=== PATIENT | male | born 1980 | race African-American/Black ===

== ENCOUNTER 2017-04-12 18:51 | Emergency (ER) | payer SELFPAY ==
[~2017-04-12] VITALS: Ht 172.7 cm; Wt 72.6 kg
[2017-04-12] MEDS ORDERED: EPINEPHrine 1mg/1ml Amp ONE (18:55)
[2017-04-12] MEDS: Albuterol ud Inhalation HHN SCH ×3 (18:59→19:16)
[2017-04-12] MEDS: Ipratropium 0.02% Inh Soln 2.5ml UD HHN SCH ×3 (18:59→19:16)
[2017-04-12] MEDS ORDERED: DiphenhydrAMINE 50mg/ml Inj IVP ONE (19:00)
[2017-04-12] MEDS ORDERED: Solu-MEDROL 125mg Inj IVP ONE (19:00)
[2017-04-12] MEDS ORDERED: Famotidine 20 MG/ 2ML VIAL IVP ONE (19:00)
[2017-04-12] MEDS ORDERED: Terbutaline 1mg/ml Inj SUBQ ONE (19:00)
[2017-04-12 19:08] VITALS: BP 152/86
[2017-04-12 19:23] LABS: BASOPHILS % (AUTO) 2.4 % (0.0-2.0); EOSINOPHILS % (AUTO) 6.7 % (0.0-3.0); LYMPHOCYTES % (AUTO) 41.3 % (20.0-45.0); MEAN CORPUSCULAR HEMOGLOBIN 28.2 PG (27.0-31.0); MEAN CORPUSCULAR HGB CONC 33.5 G/DL (32.0-36.0); MEAN CORPUSCULAR VOLUME 84 FL (80-99); MEAN PLATELET VOLUME 7.9 FL (6.5-10.1); MONOCYTES % (AUTO) 10.4 % (1.0-10.0); NEUTROPHILS % (AUTO) 39.1 % (45.0-75.0); PLATELET COUNT 193 K/UL (150-450); RED BLOOD COUNT 4.77 M/UL (4.70-6.10); RED CELL DISTRIBUTION WIDTH 12.5 % (11.6-14.8); WHITE BLOOD COUNT 8.2 K/UL (4.8-10.8)
[2017-04-12 19:30] LABS: ALANINE AMINOTRANSFERASE 38 U/L (3-41); ALBUMIN/GLOBULIN RATIO 1.4 (1.0-2.7); ANION GAP 20 (5-15); ASPARTATE AMINO TRANSFERASE 63 U/L (5-40); CALCIUM 9.2 mg/dL (8.6-10.2); CARBON DIOXIDE 23 mEQ/L (20-30); CHLORIDE 95 mEQ/L (98-107); CREATININE 1.2 mg/dL (0.7-1.2); GLOMERULAR FILTRATION RATE > 60 mL/min (>60); HEMOLYSIS 17; POTASSIUM 3.7 mEQ/L (3.4-4.9); SODIUM 138 mEQ/L (135-145); TOTAL PROTEIN 8.4 g/dL (6.6-8.7)
[2017-04-12] MEDS ORDERED: RANITIDINE 50 MG/2 ML IVPB ONE (19:45)
[2017-04-12] MEDS ORDERED: Ranitidine 50mg/2ml Inj ONE (20:01)
[2017-04-12 21:04] VITALS: BP 139/79
[2017-04-12] MEDS ORDERED: EPIPEN 2-P0.3 MG/0.3 IM (21:17)
[2017-04-12] MEDS ORDERED: DIPHENHYDRAMINE25 M1 ORAL (21:17)
[2017-04-12] MEDS ORDERED: PREDNISONE20 MG ORAL (21:17)
[2017-04-12] MEDS ORDERED: ALBUTEROL SULF8.5 GM INH (21:17)
[2017-04-12 21:21] VITALS: BP 139/79
--- NOTE | 2017-04-14 08:36 | Emergency Room Report ---
History of Present Illness General Chief Complaint: Dyspnea/Respdistress Source: Patient Present Illness HPI 37-year-old male presents ED complaining of shortness of breath. Patient came in stating that he has a peanut allergy and he may have ingested some peanuts accidentally tonight. Patient is providing very short phrases. Patient states his chest feels tight. Is sitting on stretcher in tripod position. Patient states he uses EpiPen already. Notes history of asthma. Denies fevers or chills. Denies nausea or vomiting. Denies sick contacts or recent travel. No other aggravating relieving factors. Denies any other associated symptoms Allergies: Coded Allergies: PEANUT (Verified Allergy, Unknown, 04/12/17) Patient History Past Medical History: asthma Past Surgical History: none Pertinent Family History: none Social History: Denies: alcohol use, drug use, smoking Immunizations: UTD Reviewed Nursing Documentation: PMH: Agreed, PSxH: Agreed Nursing Documentation-PMH Past Medical History: No Stated History Review of Systems All Other Systems: negative except mentioned in HPI Physical Exam Vital Signs Date Time Temp Pulse Resp B/P Pulse Ox O2 Delivery O2 Flow Rate FiO2 04/12/17 18:55 98.4 160 25 182/102 97 Room Air 04/12/17 18:55 86 04/12/17 18:59 15.0 Sp02 EP Interpretation: reviewed, normal General Appearance: alert, GCS 15, severe distress Head: normocephalic ENT: normal ENT inspection Neck: normal inspection Respiratory: decreased breath sounds, accessory muscle use, wheezing Cardiovascular #1: tachycardia Gastrointestinal: normal inspection Rectal: deferred Genitourinary: no CVA tenderness Musculoskeletal: normal inspection Neurologic: alert, oriented x3, responsive, motor strength/tone normal, sensory intact, speech normal Psychiatric: normal inspection Skin: normal inspection Lymphatic: normal inspection Procedures Critical Care Time Critical Care Time i. I feel this is a highly complex case requiring extensive working including EKG/Rhythm strip, Xray/CT/US, Blood/urine lab work, repeat exams while in ED, and administration of strong opiates/narcotics for pain control, admission to hospital or close patient follow up. Total time: 30 min bedside evaluation and treatment excludes procedures (EKG). Reason for critical care: anaphylaxis, respiratory distress Possible complications: hypotension, hypertension, OK, shock, arrhythmias, metabolic acidosis, end organ damage, respiratory failure. Interventions: labs, IVFs, terbutaline, albuterol, solumedrol, benedryl, zantac Course: Patient brought in with respiratory distress, reduced breath sounds. History of asthma with peanut allergy. Patient is in tripod position. Patient started breathing treatments. Given IV fluids, Solu-Medrol, Benadryl, Zantac, terbutaline. Patient slowly improved. Airways opening. Retractions decreasing. Tachycardia resolving with IV fluids. On reassessment patient is improved. Speaking in full sentences Consultations: nursing staff, EMS, family Performed by: Dr Fleming Tolerated well condition = stable j. because of unstable vital signs this patient had a condition that could potentially threaten life or limb. I feel this is a critical patient who required my full attention while patient was considered critical. Total Critical Care Time excluding procedures was greater than 35 minutes Medical Decision Making Diagnostic Impression: Primary Impression: Allergic reaction Qualified Codes: T78.40XA - Allergy, unspecified, initial encounter Additional Impression: Asthma exacerbation ER Course Hospital Course 37-year-old male presents to ED in respiratory distress, reduced breath sounds, retractions. Possible peanut ingestion Differential diagnoses include: allergic reaction, angioedema, anaphylaxis, asthma Clinical course Patient placed on stretcher. monitoring and evaluation advisor. After initial history and physical, he should immediately started on breathing treatments. I ordered Solu -Medrol, Benadryl, Zantac, IV fluids, terbutaline Labs reviewed - electrolytes okay, no leukocytosis, hemoglobin/hematocrit okay Patient observed closely. Patient showing improved breathing with reduced retractions minutes after administration of medication On close reassessment patient shows improved breathing. Speaking in full sentences. Airway is open. Retractions gone. Patient initially tachycardic because of medications administered. Given IV fluids and observed for some time. Tachycardia resolved i. I feel this is a highly complex case requiring extensive working including EKG/Rhythm strip, Xray/CT/US, Blood/urine lab work, repeat exams while in ED, and administration of strong opiates/narcotics for pain control, admission to hospital or close patient follow up. Diagnosis - allergic reaction, asthma Stable and discharged to home with prescriptions for albuterol, prednisone, Benadryl, epipen. Take Benadryl tonight before sleep. Followup with PMD. Return to ED if symptoms recur or worsen Labs Test 04/12/17 18:50 White Blood Count 8.2 K/UL (4.8-10.8) Red Blood Count 4.77 M/UL (4.70-6.10) Hemoglobin 13.5 G/DL (14.2-18.0) Hematocrit 40.3 % (42.0-52.0) Mean Corpuscular Volume 84 FL (80-99) Mean Corpuscular Hemoglobin 28.2 PG (27.0-31.0) Mean Corpuscular Hemoglobin Concent 33.5 G/DL (32.0-36.0) Red Cell Distribution Width 12.5 % (11.6-14.8) Platelet Count 193 K/UL (150-450) Mean Platelet Volume 7.9 FL (6.5-10.1) Neutrophils (%) (Auto) 39.1 % (45.0-75.0) Lymphocytes (%) (Auto) 41.3 % (20.0-45.0) Monocytes (%) (Auto) 10.4 % (1.0-10.0) Eosinophils (%) (Auto) 6.7 % (0.0-3.0) Basophils (%) (Auto) 2.4 % (0.0-2.0) Sodium Level 138 mEQ/L (135-145) Potassium Level 3.7 mEQ/L (3.4-4.9) Chloride Level 95 mEQ/L (98-107) Carbon Dioxide Level 23 mEQ/L (20-30) Anion Gap 20 (5-15) Blood Urea Nitrogen 13 mg/dL (7-23) Creatinine 1.2 mg/dL (0.7-1.2) Estimat Glomerular Filtration Rate > 60 mL/min (>60) Glucose Level 129 mg/dL (74-106) Calcium Level 9.2 mg/dL (8.6-10.2) Total Bilirubin 0.9 mg/dL (0.0-1.2) Aspartate Amino Transf (AST/SGOT) 63 U/L (5-40) Alanine Aminotransferase (ALT/SGPT) 38 U/L (3-41) Alkaline Phosphatase 68 U/L (40-129) Total Protein 8.4 g/dL (6.6-8.7) Albumin 4.9 g/dL (3.5-5.2) Globulin 3.5 g/dL Albumin/Globulin Ratio 1.4 (1.0-2.7) Chest X-Ray Diagnostic Results Chest X-Ray Ordered: No Last Vital Signs Date Time Temp Pulse Resp B/P Pulse Ox O2 Delivery O2 Flow Rate FiO2 04/12/17 21:21 98.4 111 18 139/79 100 Nasal Cannula 4.0 36 Status: improved Disposition: HOME, SELF-CARE Condition: Stable Scripts Epinephrine (Epipen 2-Luis Carlos) 0.3 Mg/0.3 Ml Auto.injct 0.3 MG IM ONCE, #1 EA Prov: MAURICE FLEMING M.D. 04/12/17 Diphenhydramine Hcl* (DIPHENHYDRAMINE HCL*) 25 Mg Capsule 25 MG ORAL Q6H Y for Itching for 5 Days, #30 CAP 0 Refills Prov: MAURICE FLEMING M.D. 04/12/17 Prednisone* (PREDNISONE*) 20 Mg Tablet 40 MG ORAL DAILY for 5 Days, TAB Prov: MAURICE FLEMING M.D. 04/12/17 Albuterol Sulfate* (ALBUTEROL SULFATE MDI*) 8.5 Gm Hfa.aer.ad 2 PUFF INH Q4H Y for cough/wheezing, #1 EA 0 Refills Prov: MAURICE FLEMING M.D. 04/12/17 Patient Instructions: Food Allergy, [id number] MAURICE FLEMING M.D. Apr 14, 2017 08:36
== END 2017-04-12 21:21 | disposition home or self-care (01) ==
LOC: EMR 20:10
DX: J45.901 Unspecified asthma with (acute) exacerbation (principal); T78.49XA Other allergy, initial encounter; X58.XXXA Exposure to other specified factors, initial encounter; Z91.010 Allergy to peanuts
CPT/HCPCS: 36415; 80053; 85025; 94664; 96360; 96374; 96375; 99284; J1200; J2405; J2780; J2930